=== PATIENT | female | born 1940 | race Caucasian/White ===

== ENCOUNTER 2017-10-17 15:13 | Inpatient (IN) | payer OTHER ==
[2017-10-17] MEDS: ACETAMINOPHEN 500 MG TAB PO (18:05)
[2017-10-17 18:09] LABS: ANION GAP 15 (8-16); BLOOD UREA NITROGEN 8 mg/dl (7-20); CALCIUM 9.3 mg/dl (8.4-10.2); CARBON DIOXIDE 24 mmol/L (21-31); CHLORIDE 91 mmol/L (97-110); CREATININE 0.72 mg/dl (0.44-1.00); GLUCOSE 118 mg/dl (70-220); MAGNESIUM 1.4 mg/dl (1.7-2.5); POTASSIUM 3.9 mmol/L (3.5-5.1); SODIUM 126 mmol/L (135-144)
[2017-10-17] MEDS: MAGNESIUM SULFATE 2 GM/50 ML 50 ML IVPB (19:27)
[2017-10-17] MEDS: SOD CHLORIDE 0.9% 500 ML IV (19:28)
[2017-10-17] MEDS ORDERED: ONDANSETRON 4 MG INJ IV (19:30)
[2017-10-17] MEDS ORDERED: ACETAMINOPHEN 325 MG TAB PO (19:30)
[2017-10-18] MEDS: SUMATRIPTAN 6 MG/0.5 ML INJ SC (00:28)
[2017-10-18] MEDS ORDERED: ONDANSETRON 4 MG INJ IV (01:00)
[2017-10-18] MEDS ORDERED: NACL 0.9% 3 ML SYG IV (01:00)
[2017-10-18] MEDS ORDERED: ALBUTEROL/IPRATROPIUM (NEB) 3 ML AMP HHN (01:00)
[2017-10-18] MEDS: SOD CHLORIDE 0.9% 1,000 ML IV ×2 (01:32→14:47)
[2017-10-18 05:35] LABS: ADD MAN DIFF? NO
[2017-10-18 05:51] LABS: BASOPHIL # 0.1 10^3/ul (0.0-0.1); BASOPHILS % 0.8 % (0.0-2.0); EOSINOPHILS # 0.2 10^3/ul (0.0-0.5); EOSINOPHILS % 2.5 % (0.0-7.0); HEMATOCRIT 31.2 % (37.0-47.0); HEMOGLOBIN 10.6 g/dl (12.0-16.0); LYMPHOCYTES # 2.4 10^3/ul (0.8-2.9); LYMPHOCYTES % 38.6 % (15.0-51.0); MEAN CORPUSCULAR HEMOGLOBIN 26.2 pg (29.0-33.0); MEAN PLATELET VOLUME 9.3 fl (7.4-10.4); MONOCYTE # 0.6 10^3/ul (0.3-0.9); MONOCYTES % 9.4 % (0.0-11.0); NEUTROPHILS % 47.9 % (39.0-77.0); PLATELET COUNT 289 10^3/UL (140-415); RED BLOOD COUNT 4.05 10^6/ul (4.20-5.40); RED CELL DISTRIBUTION WIDTH 13.9 % (11.5-14.5)
[2017-10-18 05:51] LABS: WHITE BLOOD COUNT 6.3 10^3/ul (4.8-10.8)
[2017-10-18] MEDS: PANTOPRAZOLE (EC) 40 MG TAB PO (05:58)
[2017-10-18 06:29] LABS: ALANINE AMINOTRANSFERASE 31 IU/L (13-69); ALBUMIN 3.7 g/dl (3.3-4.9); ALBUMIN/GLOBULIN RATIO 1.23; ALKALINE PHOSPHATASE 51 IU/L (42-121); ANION GAP 13 (8-16); ASPARTATE AMINO TRANSFERASE 29 IU/L (15-46); BILIRUBIN,INDIRECT 0.3 mg/dl (0-1.1); BILIRUBIN,TOTAL 0.3 mg/dl (0.2-1.3); BLOOD UREA NITROGEN 7 mg/dl (7-20); CALCIUM 8.9 mg/dl (8.4-10.2); CARBON DIOXIDE 25 mmol/L (21-31); CHLORIDE 97 mmol/L (97-110); CREATININE 0.71 mg/dl (0.44-1.00); GLUCOSE 107 mg/dl (70-220); SODIUM 131 mmol/L (135-144); TOTAL PROTEIN 6.7 g/dl (6.1-8.1)
[2017-10-18] MEDS: SUCRALFATE (100 MG/ML) 10ML CUP PO ×3 (08:32→21:16)
[2017-10-18] MEDS: LORATADINE 10 MG TAB PO (08:32)
[2017-10-18] MEDS: LINAGLIPTIN 5 MG TABLET PO (08:33)
[2017-10-18] MEDS: ENOXAPARIN 40 MG/0.4 ML SYG SC (08:35)
[2017-10-18 08:37] LABS: IRON 35 ug/dl (35-150)
[2017-10-18 08:49] LABS: % IRON SATURATION 10 % SAT (22-52); TOTAL IRON BINDING CAPACITY 335 ug/dl (241-421)
[2017-10-18] MEDS: LOSARTAN 50 MG TAB PO (08:54)
[2017-10-18 09:14] LABS: FERRITIN 55.9 ng/ml (11.1-264.0)
[2017-10-18 10:00] LABS: OSMOLALITY 266 mOsm/kg (280-295)
[2017-10-18 11:08] LABS: ADD UMIC YES; UR ASCORBIC ACID NEGATIVE (NEGATIVE); UR BILIRUBIN (Dip) NEGATIVE (NEGATIVE); UR BLOOD (Dip) 2+ mg/dL (NEGATIVE); UR CLARITY CLEAR (CLEAR); UR COLOR YELLOW (YELLOW); UR GLUCOSE (Dip) NEGATIVE (NEGATIVE); UR KETONES (Dip) NEGATIVE (NEGATIVE); UR LEUKOCYTE ESTERASE (Dip) 1+ Leu/ul (NEGATIVE); UR NITRITE (Dip) NEGATIVE (NEGATIVE); UR RBC 3 /HPF (0-5); UR SQUAMOUS EPITHELIAL CELL FEW /HPF (FEW); UR TOTAL PROTEIN (Dip) NEGATIVE (NEGATIVE); UR UROBILINOGEN (Dip) NEGATIVE (NEGATIVE); UR WBC 4 /HPF (0-5)
[2017-10-18 11:15] LABS: SODIUM,URINE RANDOM 26 mmol/L (30-90)
[2017-10-18 11:15] LABS: POTASSIUM,URINE RANDOM 16.3 mmol/L (25-125)
[2017-10-18 12:16] LABS: OSMOLALITY,URINE 257 mOsm/kg (250-1200)
[2017-10-18 13:49] LABS: OCCULT BLOOD STOOL NEGATIVE (NEGATIVE)
[2017-10-18] MEDS: SOD FERRIC GLUC COMPLX 125 MG in SOD CHLORIDE 0.9% 100 ML IVPB (16:52)
[2017-10-18] MEDS: ACCU-CHEK XX ×2 (16:54→21:00)
[2017-10-18] MEDS: ACETAMINOPHEN 500 MG TAB PO (19:45)
[2017-10-18] MEDS: HYDROCODONE/APAP (5/325) TAB PO (21:52)
[2017-10-19 05:07] LABS: ADD MAN DIFF? NO
[2017-10-19] MEDS: PANTOPRAZOLE (EC) 40 MG TAB PO (05:21)
[2017-10-19] MEDS: SOD CHLORIDE 0.9% 1,000 ML IV ×3 (05:21→20:11)
[2017-10-19 05:35] LABS: WHITE BLOOD COUNT 6.2 10^3/ul (4.8-10.8)
[2017-10-19 05:35] LABS: BASOPHIL # 0.1 10^3/ul (0.0-0.1); BASOPHILS % 0.8 % (0.0-2.0); EOSINOPHILS # 0.1 10^3/ul (0.0-0.5); EOSINOPHILS % 2.3 % (0.0-7.0); HEMATOCRIT 29.2 % (37.0-47.0); HEMOGLOBIN 9.5 g/dl (12.0-16.0); LYMPHOCYTES # 1.9 10^3/ul (0.8-2.9); LYMPHOCYTES % 31.2 % (15.0-51.0); MEAN CORPUSCULAR HEMOGLOBIN 25.5 pg (29.0-33.0); MEAN CORPUSCULAR HGB CONC 32.5 g/dl (32.0-37.0); MEAN CORPUSCULAR VOLUME 78.5 fl (82.0-101.0); MEAN PLATELET VOLUME 9.3 fl (7.4-10.4); MONOCYTE # 0.7 10^3/ul (0.3-0.9); MONOCYTES % 10.8 % (0.0-11.0); NEUTROPHIL # 3.4 10^3/ul (1.6-7.5); NEUTROPHILS % 54.3 % (39.0-77.0); PLATELET COUNT 260 10^3/UL (140-415); RED BLOOD COUNT 3.72 10^6/ul (4.20-5.40); RED CELL DISTRIBUTION WIDTH 14.5 % (11.5-14.5)
[2017-10-19 05:44] LABS: ANION GAP 8 (8-16); BLOOD UREA NITROGEN 10 mg/dl (7-20); CALCIUM 8.5 mg/dl (8.4-10.2); CARBON DIOXIDE 25 mmol/L (21-31); CHLORIDE 102 mmol/L (97-110); CREATININE 0.73 mg/dl (0.44-1.00); GLUCOSE 90 mg/dl (70-220); MAGNESIUM 1.7 mg/dl (1.7-2.5); PHOSPHORUS 3.5 mg/dl (2.5-4.9); POTASSIUM 4.3 mmol/L (3.5-5.1); SODIUM 131 mmol/L (135-144)
[2017-10-19] MEDS: ACCU-CHEK XX ×4 (07:45→20:22)
[2017-10-19] MEDS: ENOXAPARIN 40 MG/0.4 ML SYG SC (08:31)
[2017-10-19] MEDS: LOSARTAN 50 MG TAB PO (08:32)
[2017-10-19] MEDS: LINAGLIPTIN 5 MG TABLET PO ×2 (08:32→08:42)
[2017-10-19] MEDS: LORATADINE 10 MG TAB PO (08:32)
[2017-10-19] MEDS: SUCRALFATE (100 MG/ML) 10ML CUP PO ×3 (08:32→20:12)
[2017-10-19] MEDS: MAGNESIUM SULFATE 2 GM/50 ML 50 ML IVPB (15:45)
[2017-10-19] MEDS: SOD FERRIC GLUC COMPLX 125 MG in SOD CHLORIDE 0.9% 100 ML IVPB (16:54)
[2017-10-19] MEDS: ACETAMINOPHEN 500 MG TAB PO (20:12)
[2017-10-20] MEDS: PANTOPRAZOLE (EC) 40 MG TAB PO (05:29)
[2017-10-20] MEDS: ACCU-CHEK XX ×2 (07:30→12:19)
[2017-10-20] MEDS: LOSARTAN 50 MG TAB PO (08:38)
[2017-10-20] MEDS: LORATADINE 10 MG TAB PO (08:38)
[2017-10-20] MEDS: SUCRALFATE (100 MG/ML) 10ML CUP PO ×2 (08:38→12:27)
[2017-10-20] MEDS: ENOXAPARIN 40 MG/0.4 ML SYG SC (08:40)
[2017-10-20 12:16] LABS: ANION GAP 12 (8-16); BLOOD UREA NITROGEN 8 mg/dl (7-20); CALCIUM 8.4 mg/dl (8.4-10.2); CARBON DIOXIDE 25 mmol/L (21-31); CHLORIDE 102 mmol/L (97-110); CREATININE 0.74 mg/dl (0.44-1.00); GLUCOSE 89 mg/dl (70-220); MAGNESIUM 1.9 mg/dl (1.7-2.5); POTASSIUM 4.7 mmol/L (3.5-5.1); SODIUM 134 mmol/L (135-144)
== END 2017-10-20 16:10 | disposition home or self-care (01) | DRG 641 ==
LOC: MS3 19:13 → PP2 10-18 01:07 → E/R 15:13 → PP2 10-18 12:25
DX: E87.1 Hypo-osmolality and hyponatremia (principal); E83.42 Hypomagnesemia; I10 Essential (primary) hypertension; E11.9 Type 2 diabetes mellitus without complications; D50.9 Iron deficiency anemia, unspecified; K21.9 Gastro-esophageal reflux disease without esophagitis
CPT/HCPCS: 36415; 70450; 71045; 80048; 80053; 81001; 82270; 82436; 82728; 82962; 83036; 83540; 83735; 83930; 83935; 84100; 84133; 84300; 85025; 93005; 99285-25